=== PATIENT | male | born 1985 | race American Indian/Alaskan Native ===

== ENCOUNTER 2020-11-29 12:29 | Emergency (ER) | payer SELFPAY ==
[2020-11-29] MEDS ORDERED: SODIUM CHLORIDE 0.9% 1000 ML 1,000 ML IV ONE (14:10)
[2020-11-29] MEDS ORDERED: INSULIN REGULAR, HUMAN 100 UNITS/1 ML IV ONE (14:10)
--- NOTE | 2020-11-29 14:14 | Emergency Department Report ---
ED General Adult HPI - General Chief complaint: Wound/Laceration Stated complaint: RT FOOT BIG TOE/DIABETIC PUI?: No Source: patient Mode of arrival: Ambulatory Limitations: No Limitations - History of Present Illness Initial comments: This is a 35-year-old male history of diabetes not taking any medication who presents to the emergency department complaining of left big toe nail darkening with mild pain times couple of weeks. Patient states that he used to be on Metformin a while ago but stopped taking it due to the fact that it was making him sick. Patient states he has been using diet and exercise and has lost a lot of weight. Patient states he has not been able to see primary care physician. Patient denies any lesions or ulcers anywhere. - Related Data Previous Rx's Medication Instructions Recorded Last Taken Type Ciprofloxacin HCl [Cipro] 500 mg PO Q12H #20 tab 12/16/14 Unknown Rx Phenazopyridine [Pyridium] 200 mg PO Q8H #9 tablet 12/16/14 Unknown Rx Cyclobenzaprine [Flexeril] 10 mg PO TID PRN #15 tablet 02/24/16 Unknown Rx Ibuprofen [Motrin 800 MG tab] 800 mg PO Q8HR PRN #30 tablet 02/24/16 Unknown Rx Sulfamethoxazole/Trimethoprim 1 each PO BID #20 tablet 02/24/16 Unknown Rx [Bactrim DS TAB] metFORMIN [Glucophage] 500 mg PO BID #60 tablet 02/24/16 Unknown Rx Clotrimazole 1% [Lotrimin] 1 applic TP BID #1 tube 11/29/20 Unknown Rx Doxycycline Hyclate [Doxycycline 100 mg PO Q12HR #14 tab 11/29/20 Unknown Rx Hyclate TAB] Insulin Aspart (Nf) [Novolog] 10 units SQ QHS #1 vial 11/29/20 Unknown Rx Allergies Allergy/AdvReac Type Severity Reaction Status Date / Time No Known Allergies Allergy Verified 02/24/16 00:51 ED Review of Systems ROS: Stated complaint: RT FOOT BIG TOE/DIABETIC Other details as noted in HPI Comment: All other systems reviewed and negative ED Past Medical Hx - Past Medical History Hx Diabetes: Yes - Social History Smoking Status: Current Every Day Smoker - Medications Home Medications: Home Medications Medication Instructions Recorded Confirmed Last Taken Type Ciprofloxacin HCl [Cipro] 500 mg PO Q12H #20 tab 12/16/14 Unknown Rx Phenazopyridine [Pyridium] 200 mg PO Q8H #9 tablet 12/16/14 Unknown Rx Cyclobenzaprine [Flexeril] 10 mg PO TID PRN #15 tablet 02/24/16 Unknown Rx Ibuprofen [Motrin 800 MG tab] 800 mg PO Q8HR PRN #30 tablet 02/24/16 Unknown Rx Sulfamethoxazole/Trimethoprim 1 each PO BID #20 tablet 02/24/16 Unknown Rx [Bactrim DS TAB] metFORMIN [Glucophage] 500 mg PO BID #60 tablet 02/24/16 Unknown Rx Clotrimazole 1% [Lotrimin] 1 applic TP BID #1 tube 11/29/20 Unknown Rx Doxycycline Hyclate [Doxycycline 100 mg PO Q12HR #14 tab 11/29/20 Unknown Rx Hyclate TAB] Insulin Aspart (Nf) [Novolog] 10 units SQ QHS #1 vial 11/29/20 Unknown Rx ED Physical Exam - General Limitations: No Limitations General appearance: alert, in no apparent distress - Head Head exam: Present: atraumatic, normocephalic - Eye Eye exam: Present: normal appearance - ENT ENT exam: Present: mucous membranes moist - Neck Neck exam: Present: normal inspection - Respiratory Respiratory exam: Present: normal lung sounds bilaterally. Absent: respiratory distress - Cardiovascular Cardiovascular Exam: Present: regular rate, normal rhythm. Absent: systolic murmur, diastolic murmur, rubs, gallop - GI/Abdominal GI/Abdominal exam: Present: soft, normal bowel sounds - Rectal Rectal exam: Present: deferred - Extremities Exam Extremities exam: Present: normal inspection, full ROM, other (Toenail darkened, nontender to palpation, no swelling, nonerythematous. Fungal infection after right big toe). Absent: tenderness, pedal edema, joint swelling - Back Exam Back exam: Present: normal inspection - Neurological Exam Neurological exam: Present: alert, oriented X3 - Psychiatric Psychiatric exam: Present: normal affect, normal mood - Skin Skin exam: Present: warm, dry, intact, normal color. Absent: rash ED Course Vital Signs 11/29/20 14:38 Respiratory 18 Rate O2 Sat by Pulse 99 Oximetry ED Medical Decision Making - Lab Data Result diagrams: 11/29/20 14:29 11/29/20 15:10 Temp Pulse Resp BP Pulse Ox 18 99 11/29/20 14:38 11/29/20 14:38 Laboratory Last Values WBC 6.0 K/mm3 (4.5-11.0) 11/29/20 14:29 RBC 5.60 M/mm3 (3.65-5.03) H 11/29/20 14:29 Hgb 16.9 gm/dl (11.8-15.2) H 11/29/20 14:29 Hct 50.5 % (35.5-45.6) H 11/29/20 14:29 MCV 90 fl (84-94) 11/29/20 14:29 MCH 30 pg (28-32) 11/29/20 14: MCHC 34 % (32-34) 11/29/20 14: RDW 13.3 % (13.2-15.2) 11/29/20 14: Plt Count 302 K/mm3 (140-440) 11/29/20 14:29 Lymph % (Auto) 39.9 % (13.4-35.0) H 11/29/20 14:29 [place] % (Auto) 7.8 % (0.0-7.3) H 11/29/20 14:29 Eos % (Auto) 1.8 % (0.0-4.3) 11/29/20 14: Baso % (Auto) 0.9 % (0.0-1.8) 11/29/20 14:29 Lymph # (Auto) 2.4 K/mm3 (1.2-5.4) 11/29/20 14: Perkins # (Auto) 0.5 K/mm3 (0.0-0.8) 11/29/20 14: Eos # (Auto) 0.1 K/mm3 (0.0-0.4) 11/29/20 14: Baso # (Auto) 0.1 K/mm3 (0.0-0.1) 11/29/20 14: Seg Neutrophils % 49.6 % (40.0-70.0) 11/29/20 14: Seg Neutrophils # 3.0 K/mm3 (1.8-7.7) 11/29/20 14:29 Sodium 138 mmol/L (137-145) 11/29/20 15:10 Potassium 4.0 mmol/L (3.6-5.0) 11/29/20 15:10 Chloride 100.5 mmol/L (98-107) 11/29/20 15:10 Carbon Dioxide 27 mmol/L (22-30) 11/29/20 15:10 Anion Gap 15 mmol/L 11/29/20 15:10 BUN 9 mg/dL (9-20) 11/29/20 15:10 Creatinine 0.8 mg/dL (0.8-1.3) 11/29/20 15:10 Estimated GFR > 60 ml/min 11/29/20 15:10 BUN/Creatinine Ratio 11 % 11/29/20 15:10 Glucose 309 mg/dL (75-100) H 11/29/20 15:10 POC Glucose 386 mg/dL (70-105) H 11/29/20 13:22 Calcium 9.0 mg/dL (8.4-10.2) 11/29/20 15:10 Total Bilirubin 1.00 mg/dL (0.1-1.2) 11/29/20 15:10 AST 14 units/L (5-40) 11/29/20 15:10 ALT 13 units/L (7-56) 11/29/20 15:10 Alkaline Phosphatase 134 units/L (35-129) H 11/29/20 15:10 Total Protein 6.9 g/dL (6.3-8.2) 11/29/20 15:10 Albumin 4.4 g/dL (3.9-5) 11/29/20 15:10 Albumin/Globulin Ratio 1.8 % 11/29/20 15:10 Urine Color Straw (Yellow) 11/29/20 Unknown Urine Turbidity Clear (Clear) 11/29/20 Unknown Urine pH 6.0 (5.0-7.0) 11/29/20 Unknown Ur Specific [place] 1.027 (1.003-1.030) 11/29/20 Unknown Urine Protein <15 mg/dl mg/dL (Negative) 11/29/20 Unknown Urine Glucose (UA) >=500 mg/dL (Negative) 11/29/20 Unknown Urine Ketones Neg mg/dL (Negative) 11/29/20 Unknown Urine Blood Neg (Negative) 11/29/20 Unknown Urine Nitrite Neg (Negative) 11/29/20 Unknown Urine Bilirubin Neg (Negative) 11/29/20 Unknown Urine Urobilinogen < 2.0 mg/dL (<2.0) 11/29/20 Unknown Ur Leukocyte Esterase Sm (Negative) 11/29/20 Unknown Urine WBC (Auto) 42.0 /HPF (0.0-6.0) H 11/29/20 Unknown Urine RBC (Auto) 5.0 /HPF (0.0-6.0) 11/29/20 Unknown - Medical Decision Making This 35-year-old male presented with fungal nail bed infection. Since patient was a diabetic fingerstick was achieved and blood glucose was elevated. Patient received labs in the ED, IV fluids, 8 units of insulin. Blood glucose reduced to 271 prior to discharge. I discussed with patient is very important he follows up with his primary care physician so that he may continue medication for high blood glucose. I discussed complications of uncontrolled diabetes with the patient. Patient is in no acute distress or respiratory distress he understands all instructions given. Patient states he will follow-up. Critical care attestation.: If time is entered above; I have spent that time in minutes in the direct care of this critically ill patient, excluding procedure time. ED Disposition Clinical Impression: Fungal toenail infection, Hyperglycemia due to diabetes mellitus Disposition: DC-01 TO HOME OR SELFCARE Is pt being admited?: No Does the pt Need Aspirin: No Condition: Stable Instructions: Insulin Treatment for Diabetes Mellitus, Fungal Nail Infection, Type 2 Diabetes Mellitus, Self Care, Adult, Diabetes Mellitus Type 2 in Adults (ED) Additional Instructions: Make sure to follow up with the primary care physician as discussed. Take all your medications as you've been prescribed. If you have any worsening symptoms or develop new symptoms please return to ED immediately. Prescriptions: Insulin Aspart (Nf) [Novolog] 10 units SQ QHS #1 vial Doxycycline Hyclate [Doxycycline Hyclate TAB] 100 mg PO Q12HR #14 tab Clotrimazole 1% [Lotrimin] 1 applic TP BID #1 tube Referrals: [facility] [Outside] - 3-5 Days [facility] [Outside] - 3-5 Days PRIMARY CAREMD [Primary Care Provider] - 3-5 Days ASHUTOSH BEDOYA MD [Staff Physician] - 3-5 Days Forms: Work/School Release Form(ED) Time of Disposition: 16:55
[2020-11-29 14:44] LABS: Basophils # (Auto) 0.1 K/mm3 (0.0-0.1); Basophils % (Auto) 0.9 % (0.0-1.8); Eosinophils # (Auto) 0.1 K/mm3 (0.0-0.4); Eosinophils % (Auto) 1.8 % (0.0-4.3); Hematocrit 50.5 % (35.5-45.6); Hemoglobin 16.9 gm/dl (11.8-15.2); Lymphocytes # (Auto) 2.4 K/mm3 (1.2-5.4); Lymphocytes % (Auto) 39.9 % (13.4-35.0); Mean Corpuscular HGB Conc 34 % (32-34); Mean Corpuscular Volume 90 fl (84-94); Monocytes # (Auto) 0.5 K/mm3 (0.0-0.8); Monocytes % (Auto) 7.8 % (0.0-7.3); Platelet Count 302 K/mm3 (140-440); Red Cell Distribution Width 13.3 % (13.2-15.2)
[2020-11-29 15:42] LABS: Alanine Aminotransferase 13 units/L (7-56); Albumin 4.4 g/dL (3.9-5); BUN/Creatinine Ratio 11; Blood Urea Nitrogen 9 mg/dL (9-20); Hemolysis Index 4
[2020-11-29 16:05] LABS: Bilirubin,Urine NEG (Negative); Blood,Urine NEG (Negative); Color,Urine Straw (Yellow); Protein,Urine <15 mg/dL mg/dL (Negative); Urobilinogen,Urine < 2.0 mg/dL (<2.0)
[2020-11-29 17:41] VITALS: BP 145/80
== END 2020-11-29 17:40 | disposition home or self-care (01) ==
LOC: ED 12:29
DX: B35.1 Tinea unguium (principal); E11.65 Type 2 diabetes mellitus with hyperglycemia; F17.200 Nicotine dependence, unspecified, uncomplicated; Z79.899 Other long term (current) drug therapy
CPT/HCPCS: 36415; 80053; 81001; 82962; 85025; 87086; 96361; 96374; 99283; J7030; J1815